=== PATIENT | female | born 1985 ===

== ENCOUNTER 2022-04-05 00:39 | Day surgery (SDC) | payer SELFPAY ==
[~2022-04-05 00:39] MED LIST: IBUP800 PO; Verotin-Gr Cap1 EACH PO
== END 2022-04-05 10:22 | disposition home or self-care (01) ==
LOC: ATC 00:39
DX: Z29.14 Encounter for prophylactic rabies immune globulin (principal); Z88.2 Allergy status to sulfonamides; Z23 Encounter for immunization
CPT/HCPCS: 90471